=== PATIENT | female | born 1975 | race Caucasian/White ===

== ENCOUNTER 2021-07-03 17:20 | Emergency (ER) | payer OTHER ==
[2021-07-03 18:04] VITALS: BP 127/78; PULSE 84; RESP 16; TEMP 97.7
--- NOTE | 2021-07-03 18:24 | XR ---
EXAMINATION TYPE: XR hand complete LT DATE OF EXAM: 07/03/2021 COMPARISON: NONE HISTORY: Pain and swelling TECHNIQUE: 3 views FINDINGS: Metacarpals are intact. There is some narrowing and spurring at the first carpometacarpal j oint. Fingers are intact. IMPRESSION: Osteoarthritis at the base of the thumb. No fracture seen.
--- NOTE | 2021-07-03 19:24 | ED ---
General Adult HPI - General Chief complaint: Extremity Problem,Nontraumatic Stated complaint: R Hand swelling Time Seen by Provider: 07/03/21 19:07 Source: patient Mode of arrival: ambulatory Limitations: no limitations - History of Present Illness Initial comments: Dictation was produced using [employer] dictation software. please excuse any grammatical, word or spelling errors. Chief Complaint: 46-year-old female presents with right thumb pain History of Present Illness: Patient is a 46-year-old female she presents with 2 weeks of right thumb pain. 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 States that she has pain in the base of her right thumb. Patient states that she's had pain chronically on and off for the last several months. Denies any numbness and paresthesias to the thumb or right hand. The ROS documented in this emergency department record has been reviewed and confirmed by me. Those systems with pertinent positive or negative responses have been documented in the HPI. All other systems are other negative and/or noncontributory. PHYSICAL EXAM: General Impression: Alert and oriented x3, not in acute distress HEENT: Normocephalic atraumatic, extra-ocular movements intact, pupils equal and reactive to light bilaterally, mucous membranes moist. Cardiovascular: Heart regular rate and rhythm Chest: Able to complete full sentences, no retractions, no tachypnea Right hand: Tenderness to palpation at the base of the right thumb Motor: no focal deficits noted Neurological: CN II-XII grossly intact, no focal motor or sensory deficits noted Psych: Normal affect and mood ED course: 46-year-old feel presents to the emergency department for right thumb pain. Hand x-ray was obtained showing osteoarthritis at the base of the right thumb. No occult fracture seen. On upon arrival are within acceptable limits. Patient's will. Bedside. She is given referral to hand specialist. Patient counseled on rest and ice depression and NSAIDs. - Related Data Allergies Allergy/AdvReac Type Severity Reaction Status Date / Time No Known Allergies Allergy Verified 07/03/21 18:04 Review of Systems ROS Statement: Those systems with pertinent positive or pertinent negative responses have been documented in the HPI. ROS Other: All systems not noted in ROS Statement are negative. Past Medical History Past Medical History: No Reported History History of Any Multi-Drug Resistant Organisms: None Reported Past Surgical History: No Surgical Hx Reported Past Psychological History: No Psychological Hx Reported Smoking Status: Never smoker Past Alcohol Use History: Occasional Past Drug Use History: None Reported General Exam Limitations: no limitations Course Vital Signs 07/03/21 18:01 Temperature 97.7 F Pulse Rate 84 Respiratory 16 Rate Blood Pressure 127/78 O2 Sat by Pulse 97 Oximetry Disposition Clinical Impression: Hand arthritis Disposition: HOME SELF-CARE Condition: Fair Instructions (If sedation given, give patient instructions): Arthralgia (ED) Is patient prescribed a controlled substance at d/c from ED?: No Referrals: Maria Isabel Kingston DO [Doctor of Osteopathic Medicine] - 1-2 days
== END 2021-07-03 19:30 | disposition home or self-care (01) ==
LOC: EC 17:20
DX: M19.042 Primary osteoarthritis, left hand (principal)
CPT/HCPCS: 99283